=== PATIENT | female | born 1955 | race Caucasian/White ===

== ENCOUNTER 2017-12-21 22:54 | Emergency (ER) | payer OTHER ==
--- NOTE | 2017-12-21 23:05 | EDPHY ---
H & P Stated Complaint: fall Time Seen by Provider: 12/21/17 23:05 HPI/ROS: HPI CHIEF COMPLAINT: Mechanical trip and fall. Alcohol intoxication, head injury HISTORY OF PRESENT ILLNESS: 61-year-old female, denies any significant medical history, denies taking any medication, presents emergency room after had a large amount of alcohol this evening. Patient states that she had 2 large drinks this evening and she states she tripped and fell. She struck her head against the ground. Unknown LOC. She presents to the emergency room by ambulance, facial trauma. She has a left orbital hematoma. She denies any complaints but is highly intoxicated here, slurring her speech. Smells of alcohol. Past Medical History: Denies medical history Past Surgical History: Denies recent surgery Social History: Alcohol this evening. Family History: Noncontributory ROS REVIEW OF SYSTEMS: 10 Systems were reviewed and negative with the exception of the elements mentioned in the history of present illness. Exam Constitutional intoxicated, smells of alcohol, slurring speech triage nursing summary reviewed, vital signs reviewed, awake/alert. Eyes normal conjunctivae and sclera, EOMI, PERRLA. HENT head/neck: Patient in a cervical collar placed by EMS, no midline cervical spine pain or step-offs, forehead hematoma present above the left eyebrow and around the left orbit, abrasion present, moist mucus membranes, no epistaxis, neck supple/ no meningismus, no raccoon eyes. Respiratory clear to auscultation bilaterally, normal breath sounds, no respiratory distress, no wheezing. Cardiovascular rate normal, regular rhythm, no murmur, no edema, distal pulses normal. Gastrointestinal soft, non-tender, no rebound, no guarding, normal bowel sounds, no distension, no pulsatile mass. Genitourinary no CVA tenderness. Musculoskeletal no midline vertebral tenderness, full range of motion, no calf swelling, no tenderness of extremities, no meningismus, good pulses, neurovascularly intact. Skin pink, warm, & dry, no rash, skin atraumatic. Neurologic intoxicated, smells of alcohol, slurring speech awake, alert and oriented x 3, AAOx3, moves all 4 extremities equally, motor intact, sensory intact, CN II-XII intact, normal cerebellar, normal vision Psychiatric normal mood/affect. Heme/Lymph/Immune no lymphadenopathy. Differential Diagnosis: Includes but is not limited to in a particular order intracranial bleed, skull fracture, facial fracture, acute alcohol intoxication Medical Decision Making: Plan for this patient IV establishment IV fluid bolus , check basic electrolytes, alcohol level, CT scan head without contrast, CT scan cervical spine without contrast for acute trauma in the setting of alcohol intoxication. Re-evaluation: CT scan head without contrast and CT scan cervical spine without contrast negative for acute traumatic injury. Called to me by Dr. Channing Sanches Serum alcohol level 230. 1244AM: Patient resting nad. Source: Patient, EMS - Personal History Current Tetanus Diphtheria and Acellular Pertussis (TDAP): Yes - Medical/Surgical History Hx Asthma: No Hx Chronic Respiratory Disease: No Hx Diabetes: No Hx Cardiac Disease: No Hx Renal Disease: No Hx Cirrhosis: No Hx Alcoholism: No Hx HIV/AIDS: No Hx Splenectomy or Spleen Trauma: No Other PMH: denies - Social History Smoking Status: Light smoker Constitutional: Initial Vital Signs Temperature (C) 36.3 C 12/21/17 22:57 Heart Rate 72 12/21/17 22:57 Respiratory Rate 16 12/21/17 22:57 Blood Pressure 139/67 H 12/21/17 22:57 O2 Sat (%) 97 12/21/17 22:57 O2 Delivery Mode Room Air Allergies/Adverse Reactions: No Known Allergies Allergy (Unverified 12/21/17 22:57) Home Medications: Medication Instructions Recorded NK [No Known Home Meds] 12/21/17 Medical Decision Making - Diagnostics Imaging Results: Imaging Impressions Cervical Spine CT 12/21/17 23:05 Impression: 1. No acute posttraumatic abnormality identified. If there is persistent pain or neurologic deficit, consider MRI and/or flexion and extension views if clinically indicated. 2. Degenerative change most prominent from C5 through C7, with probable moderate to severe spinal canal narrowing. Findings discussed with Brandt Joyner MD 12/21/2017 at 23:32. Head CT 12/21/17 23:05 Impression: No acute intracranial findings. Findings discussed with Brandt Joyner MD 12/21/2017 at 23:32. ` - Data Points Laboratory Results: Laboratory Results 12/21/17 23:13 12/21/17 23:13 12/21/17 12/21/17 12/21/17 23:13 23:13 23:13 WBC 5.58 10^3/uL 10^3/uL (3.80-9.50) RBC 4.55 10^6/uL 10^6/uL (4.18-5.33) Hgb 14.8 g/dL g/dL (12.6-16.3) Hct 44.0 % % (38.0-47.0) MCV 96.7 fL fL (81.5-99.8) MCH 32.5 pg pg (27.9-34.1) MCHC 33.6 g/dL g/dL (32.4-36.7) RDW 13.8 % % (11.5-15.2) Plt Count 144 10^3/uL L 10^3/uL (150-400) MPV 12.4 fL H fL (8.7-11.7) Neut % (Auto) 61.5 % % (39.3-74.2) Lymph % (Auto) 29.4 % % (15.0-45.0) [place] % (Auto) 6.6 % % (4.5-13.0) Eos % (Auto) 1.6 % % (0.6-7.6) Baso % (Auto) 0.5 % % (0.3-1.7) Nucleat RBC Rel Count 0.0 % % (0.0-0.2) Absolute Neuts (auto) 3.43 10^3/uL 10^3/uL (1.70-6.50) Absolute Lymphs (auto) 1.64 10^3/uL 10^3/uL (1.00-3.00) Absolute Monos (auto) 0.37 10^3/uL 10^3/uL (0.30-0.80) Absolute Eos (auto) 0.09 10^3/uL 10^3/uL (0.03-0.40) Absolute Basos (auto) 0.03 10^3/uL 10^3/uL (0.02-0.10) Absolute Nucleated RBC 0.00 10^3/uL 10^3/uL (0-0.01) Immature Gran % 0.4 % % (0.0-1.1) Immature Gran # 0.02 10^3/uL 10^3/uL (0.00-0.10) PT 12.4 SEC SEC (12.0-15.0) INR 0.90 (0.83-1.16) APTT 30.2 SEC SEC (23.0-38.0) Sodium 142 mEq/L mEq/L (135-145) Potassium 3.8 mEq/L mEq/L (3.3-5.0) Chloride 110 mEq/L mEq/L (97-110) Carbon Dioxide 20 mEq/l L mEq/l (22-31) Anion Gap 12 mEq/L mEq/L (8-16) BUN 13 mg/dL mg/dL (7-23) Creatinine 0.6 mg/dL mg/dL (0.6-1.0) Estimated GFR > 60 Glucose 118 mg/dL H mg/dL (70-100) Calcium 8.9 mg/dL mg/dL (8.5-10.4) Ethyl Alcohol 230 mg/dL H mg/dL (0-10) Medications Given: Discontinued Medications Sodium Chloride (Ns) 1,000 mls @ 0 mls/hr IV EDNOW ONE; Wide Open PRN Reason: Protocol Stop: 12/21/17 23:09 Last Admin: 12/21/17 23:22 Dose: 1,000 mls Departure - Departure Disposition: Home, Routine, Self-Care Clinical Impression: Alcohol intoxication Condition: Good Instructions: Alcohol Intoxication (ED), Fall Prevention (ED), Hematoma (ED) Referrals: Patient,NotPresent [Unknown] - As per Instructions
[2017-12-21] MEDS ORDERED: NS 1,000 ML IV ONE (23:08)
[2017-12-21 23:37] LABS: PLATELET COUNT 144 10^3/uL (150-400)
[2017-12-21 23:41] LABS: INR 0.9 (0.83-1.16); PROTIME(PATIENT) 12.4 SEC (12.0-15.0)
[2017-12-22 01:10] VITALS: BP 121/74
== END 2017-12-22 01:28 | disposition home or self-care (01) ==
LOC: EDUNIT#
DX: F10.929 Alcohol use, unspecified with intoxication, unspecified (principal); S05.12XA Contusion of eyeball and orbital tissues, left eye, initial encounter; W19.XXXA Unspecified fall, initial encounter; Y90.7 Blood alcohol level of 200-239 mg/100 ml; E86.9 Volume depletion, unspecified
CPT/HCPCS: G0480